=== PATIENT | male | born 1970 | race American Indian/Alaskan Native ===

== ENCOUNTER 2018-12-02 15:31 | Observation (INO) | payer SELFPAY ==
[2018-12-02 15:32] VITALS: BMI 25.7
[2018-12-02] MEDS ORDERED: Sodium Chloride 0.9% 1,000 ML IV SCH (15:45)
--- NOTE | 2018-12-02 15:52 | EDPD ---
HPI Stroke - General Time Seen by Provider: 12/02/18 15:41 Chief Complaint: Weakness/Neurological Deficit Historian: Patient, Spouse () - History of Present Illness Narrative History of Present Illness (Free Text): 12/02/18 15:49 A 48 year old male, whose past medical history includes PE no longer on coumadin, presents to the emergency department complaining of a possible stroke. Patient reports experiencing right sided facial numbness, arm numbness, right hand weakness that completely resolved prior to arrival. Patient denies any facial droop, speech changes, or any other complaints. PMD: Dr. Sosa Onset:: Hours (30-60 minutes) Timing: Currently Symptomatic (almost completely resolved) Context: Home Associated Symptoms: Numbness (right sided facial and arm numbness), other (right hand weakness) rTPA Inclusion/Exclusion - Refusal of Treatment Patient Refused Treatment: No - Inclusion Criteria for Altepase Patient is 18 years or Older: Yes The Clinical Diagnosis of Ischemic Stroke That is Causing a Potentially Disabling Neurological Deficit: Yes Time of Onset is Well Established to be Less Than 270 Minute Before Treatment Would Begin: Yes Risk/Benefit Discussed With Patient/Family Member Present: No - Warning to TPA With Conditions Condition: Stroke Serevity Too Mild, Rapid Improvement Past Medical History - Provider Review Nursing Documentation Reviewed: Yes - Infectious Disease Hx of Infectious Diseases: None - Tetanus Immunization Tetanus Immunization: Unknown - Cardiac Hx Cardiac Disorders: No - Pulmonary Hx Respiratory Disorders: Yes Hx Pulmonary Embolism: Yes Other/Comment: Sarcoidosis - Neurological Hx Neurological Disorder: Yes Hx Dizziness: Yes - HEENT Hx HEENT Disorder: No - Renal Hx Renal Disorder: No - Endocrine/Metabolic Hx Endocrine Disorders: No - Hematological/Oncological Hx Blood Disorders: No - Integumentary Hx Dermatological Disorder: No - Musculoskeletal/Rheumatological Hx Musculoskeletal Disorders: Yes Hx Falls: Yes Hx Fractures: Yes - Gastrointestinal Hx Gastrointestinal Disorders: No - Genitourinary/Gynecological Hx Genitourinary Disorders: No - Psychiatric Hx Psychophysiologic Disorder: Yes Hx Depression: Yes Hx Substance Use: No - Past Surgical History Past Surgical History: No Previous - Anesthesia Hx Anesthesia: Yes Hx Anesthesia Reactions: No Hx Malignant Hyperthermia: No - Suicidal Assessment Feels Threatened In Home Enviroment: No Allergies/Home Meds Allergies/Adverse Reactions: Allergies No Known Allergies Allergy (Verified 12/02/18 15:36) Home Medications: Home Meds Medication Instructions Recorded Confirmed No Known Home Med 12/02/18 12/02/18 Review of Systems - Physician Review All systems were reviewed & negative as marked: Yes - Review of Systems Skin: Other (right sided facial and arm numbness) Neurological: absent: Speech Changes, Facial Droop ED Stroke Physical Exam Vital Signs Reviewed: Yes Vital Signs Temp Pulse Resp BP Pulse Ox 12/02/18 15:37 97.7 F 85 17 123/86 100 Temperature: Afebrile Blood Pressure: Normal Pulse: Regular Respiratory Rate: Normal Mental Status: Positive for: Alert and Oriented X 3 - Systems Exam Head: Present: Atraumatic, Normocephalic Pupils: Present: PERRL Extroacular Muscles: Present: EOMI Conjunctiva: Present: Normal Mouth: Present: Moist Mucous Membranes Pharnyx: Present: Normal Respiratory/Chest: Present: Clear to Auscultation, Good Air Exchange. No: Respiratory Distress, Accessory Muscle Use Cardiovascular: Present: Regular Rate and Rhythm, Normal S1, S2. No: Murmurs Abdomen: Present: Normal Bowel Sounds. No: Tenderness, Distention, Peritoneal Signs Back: Present: GCS, CN, SP Upper Extremity: Present: Normal Inspection. No: Cyanosis, Edema Lower Extremity: Present: Normal Inspection. No: Edema Neurologic: Present: GCS=15, CN II-XII Intact, Speech Normal, Motor Func Grossly Intact, Normal Sensory Function, Normal Cerebellar Funct, Norm Deep Tendon Reflexes, Memory Normal, Normal 2Pt Descrimination. No: Pronator Drift, Facial Droop, Dysmetric Finger to Nose, Dysmetric Heel to Chin Skin: Present: Warm, Dry, Normal Color. No: Rashes Lymphatic: Present: OX3, NI, NC Psychiatric: Present: Alert, Oriented x 3, Normal Insight, Normal Concentration Medical Decision Making ED Course and Treatment: 12/02/18 15:54 Impression: 48 year old male presenting to the emergency room complaining of possible stroke. Differential Diagnosis included but are not limited to: TIA Plan: -- Type and screen -- Head CT without contrast -- Labs -- Stroke team consult -- CBC -- COAGs -- Chest X-ray -- IV fluids -- Reassess and disposition Prior Visits: Notes and results from previous visits were reviewed. Progress Notes: 12/02/18 15:38 CODE STROKE called. 12/02/18 16:10 Per Radiologist, CT results are negative. 12/02/18 16:37 EKG: Ordered, reviewed, and independently interpreted the EKG. Rate : 73 BPM Rhythm : NSR Interpretation : No ST-segment elevations or depressions, no T-wave inversions, normal intervals. 12/02/18 16:40 Procedure: Head CT without contrast Dictator: Compa Bassett MD Impression: No acute intracranial hemorrhage. Mucoperiosteal inflammatory changes are seen in the right maxillary sinus ethmoid and frontal sinuses as detailed above. Findings discussed with Dr. Christianson at approximately 3:56 p.m. with written down and read back verification 12/02/18 17:18 Case was discussed with Dr. Clifford who recommends admission for TIA and to get an MRI/MRA on admission. Patient is not a TPA candidate due to completely resolved symptoms. ABCD Score of 2. Case discussed with Dr. Green, hospitalist, who will place the patient on telemetry observation. Aspirin was given. Blood pressure controlled. - Critical Care Critical Care Minutes: 30 minutes - RAD Interpretation Radiology Orders: 12/02/18 15:41 HEAD W/O (CODE STROKE) [CT] Stat CHEST PORTABLE [RAD] Stat - Medication Orders Current Medication Orders: Sodium Chloride (Sodium Chloride 0.9%) 1,000 mls @ 100 mls/hr IV .Q10H TARA - Scribe Statement The provider has reviewed the documentation as recorded by the Scribe Samara Schroeder All medical record entries made by the Scribe were at my direction and personally dictated by me. I have reviewed the chart and agree that the record accurately reflects my personal performance of the history, physical exam, medical decision making, and the department course for this patient. I have also personally directed, reviewed, and agree with the discharge instructions and disposition. NIHSS Scale ([place]) Time Performed: 15:41 - How Severe is the Stoke Baseline Level of Consciousness: 0=Alert LOC to Questions: 0=Both comments correct LOC to commands: 0=Obeys both correctly Best Gaze: 0=Normal Visual: 0=No visual loss Facial: 0=Normal Motor Arm - Left: 0=No drift Motor Arm - Right: 0=No drift Motor Leg - Left: 0=No drift Motor Leg - Right: 0=No drift Limb Ataxia: 0=Absent Sensory: 0=Normal Best Language: 0=No aphasia Dysarthia: 0=Normal articulation Extinction & Inattention (Neglect): 0=Normal, no object Score: 0 Risk Level: No Stroke Risk Disposition/Present on Arrival - Present on Arrival Any Indicators Present on Arrival: Yes History of DVT/PE: Yes History of Uncontrolled Diabetes: No Urinary Catheter: No History of Decub. Ulcer: No History Surgical Site Infection Following: None - Disposition Have Diagnosis and Disposition been Completed?: Yes Diagnosis: TIA (transient ischemic attack) Disposition: HOSPITALIZED Disposition Time: 17:19 Patient Plan: Observation Patient Problems: Current Active Problems Problem Status Onset TIA (transient ischemic attack) Acute Condition: FAIR Referrals: Compa Sosa MD [Primary Care Provider] - Follow up with primary Forms: [employer] ([place])
--- NOTE | 2018-12-02 16:04 | CT ---
Date of service: 12/02/2018 PROCEDURE: CT HEAD WITHOUT CONTRAST. HISTORY: Code Stroke COMPARISON: Prior study available for comparison. TECHNIQUE: Axial computed tomography images were obtained through the head/brain without intravenous contrast. Radiation dose: Total exam DLP = 930.09 mGy-cm. This CT exam was performed using one or more of the following dose reduction techniques: Automated exposure control, adjustment of the mA and/or kV according to patient size, and/or use of iterative reconstruction technique. FINDINGS: HEMORRHAGE: No acute parenchymal, subarachnoid or extra-axial hemorrhage. BRAIN: No evidence of large acute infarct. Note that possibility of a small hyperacute infarct cannot be excluded on this study. Clinical correlation recommended. No obvious parenchymal nor extra-axial masses or collections. Ventricular and sulcal size within range of normal for this patient's stated age. VENTRICLES: No obstructive the hydrocephalus. CALVARIUM: No acute calvarial fractures. PARANASAL SINUSES: There is subtotal opacification right maxillary antrum with mild sclerosis and thickening of the posterolateral wall. On mild mucosal thickening also seen within several anterior superior right-sided ethmoid air cells extending into the frontal sinus which is also subtotally opacified. MASTOID AIR CELLS: Unremarkable as visualized. No inflammatory changes. OTHER FINDINGS: None. IMPRESSION: No acute intracranial hemorrhage. Mucoperiosteal inflammatory changes are seen in the right maxillary sinus ethmoid and frontal sinuses as detailed above. Findings discussed with Dr. Christianson at approximately 4:56 p.m. with written down and read back verification
[2018-12-02 16:08] LABS: BASO # 0.02 K/mm3 (0.0-2.0); BASO % 0.3 % (0.0-3.0); EOS # 0.2 (0.0-0.7); EOS % 2.5 % (1.5-5.0); HEMOGLOBIN 14.8 g/dL (14.0-18.0); LYMPH # 2.8 (1.2-3.4); LYMPH % 40.9 % (22.0-35.0); MEAN CELL VOLUME 87.6 fl (80.0-105.0); MEAN CORPUSCULAR HEMOGLOBIN 29.5 pg (25.0-35.0); MEAN CORPUSCULAR HGB CONC 33.6 g/dl (31.0-37.0); MEAN PLATELET VOLUME 9.5 fl (7.0-11.0); MONO # 0.4 (0.1-0.6); RBC 5.02 10^6/uL (3.5-6.1); RED CELL DISTRIBUTION WIDTH 13.2 % (11.5-14.5); WHITE BLOOD COUNT 6.8 10^3/uL (4.5-11.0)
[2018-12-02 16:20] LABS: ALB/GLOB RATIO 1.3 (1.1-1.8); ALBUMIN 4.3 g/dL (3.0-4.8); ALT/SGPT 13 U/L (7-56); AST/SGOT 23 U/L (17-59); BLOOD UREA NITROGEN 14 mg/dL (7-21); CALCIUM 9.4 mg/dL (8.4-10.5); GFR NON-AFRICAN AMERICAN > 60; HDL CHOLESTEROL 45 mg/dL (29-60); INR 1.14; PARTIAL THROMBOPLASTIN TIME 34.8 Seconds (26.9-38.3); PROTHROMBIN TIME 12.6 SECONDS (9.4-12.5)
[2018-12-02 16:31] LABS: LDL CHOLESTEROL 95 mg/dL (0-129)
[2018-12-02 16:34] LABS: TROPONIN I < 0.01 ng/mL
--- NOTE | 2018-12-02 16:58 | RAD ---
Date of service: 12/02/2018 HISTORY: Code Stroke COMPARISON: Comparison chest 08/30/2016. FINDINGS: LUNGS: Lung carver are hyperinflated with slight flattened appearing diaphragms suggesting underlying chronic manifestations of COPD. In addition, there are coarsened increased interstitial markings in the right upper lung field; findings may represent interstitial fibrosis. Clinical correlation recommended. There are some mild on scarring changes both lung bases as well as some a blunting both CP angles suggesting chronic pleural thickening. PLEURA: No significant pleural effusion identified, no pneumothorax apparent. CARDIOVASCULAR: No aortic atherosclerotic calcification present. Normal cardiac size. No pulmonary vascular congestion. OSSEOUS STRUCTURES: No significant abnormalities. VISUALIZED UPPER ABDOMEN: Normal. OTHER FINDINGS: None. IMPRESSION: Lung carver are hyperinflated with slight flattened appearing diaphragms suggesting underlying chronic manifestations of COPD. In addition, there are coarsened increased interstitial markings in the right upper lung field; findings may represent interstitial fibrosis. Clinical correlation recommended. There are some mild on scarring changes both lung bases as well as some a blunting both CP angles suggesting chronic pleural thickening.
--- NOTE | 2018-12-02 17:32 | CP.PCM.HP ---
<Inderjit Redd - Last Filed: 12/02/18 22:49> History of Present Illness - History of Present Illness History of Present Illness: Inderjit Redd, PGY1 Medicine H&P for Dr. Green cc: "right sided facial/arm numbness" Patient is a 48 year old male with PMHx sarcoidosis and PE (provoked 2/2 leg fracture, previously on coumadin) presented to the ED for right sided facial and arm numbness. Patient had associated right hand weakness prior to his arrival. In the ED, Vitals: Temp 97.7, HR 85, BP 123/86, RR 17, SaO2 100% (room air). Head CT showed no acute ICH. Code stroke was called at the time. Medical team evaluated patient in the ED. Patient said the incident happened at 2 pm and his symptoms occurred for a few minutes and resolved. He says that the right sided facial/arm numbness occurs almost everyday however it was particularly worse today. He denied any facial drooping, slurring of speech, bowel/bladder incontinence, tongue biting, or seizure-like activity. Patient was smoking marijuana at the time and regularly smokes it. He says he is also anxious. Denies chest pain, shortness of breath, nausea, vomiting, diarrhea, fever, chills, headache. A full 12 point ROS was conducted and unremarkable except as stated above. PMD: Dr. Sosa PMHx: sarcoidosis and PE (provoked 2/2 leg fracture, previously on coumadin) PSHx: denies Meds: see DEC. Allergies: NKDA SocialHx: smokes 1 PPD x10 years, no EtOH use. Marijuana use regularly. FHx: grandfather has hx of seizure and stroke. Present on Admission - Present on Admission Any Indicators Present on Admission: No Review of Systems - Review of Systems All systems: reviewed and no additional remarkable complaints except (as per HPI) Past Patient History - Infectious Disease Hx of Infectious Diseases: None - Tetanus Immunizations Tetanus Immunization: Unknown - Past Social History Smoking Status: Former Smoker - CARDIAC Hx Cardiac Disorders: No - PULMONARY Hx Respiratory Disorders: Yes Hx Pulmonary Embolism: Yes Other/Comment: Sarcoidosis - NEUROLOGICAL Hx Neurological Disorder: Yes Hx Dizziness: Yes - HEENT Hx HEENT Problems: No - RENAL Hx Chronic Kidney Disease: No - ENDOCRINE/METABOLIC Hx Endocrine Disorders: No - HEMATOLOGICAL/ONCOLOGICAL Hx Blood Disorders: No - INTEGUMENTARY Hx Dermatological Problems: No - MUSCULOSKELETAL/RHEUMATOLOGICAL Hx Musculoskeletal Disorders: Yes Hx Falls: Yes Hx Fractures: Yes - GASTROINTESTINAL Hx Gastrointestinal Disorders: No - GENITOURINARY/GYNECOLOGICAL Hx Genitourinary Disorders: No - PSYCHIATRIC Hx Psychophysiologic Disorder: Yes Hx Depression: Yes Hx Substance Use: No - SURGICAL HISTORY Hx Surgeries: No - ANESTHESIA Hx Anesthesia: Yes Hx Anesthesia Reactions: No Hx Malignant Hyperthermia: No Meds Allergies/Adverse Reactions: Allergies Allergy/AdvReac Type Severity Reaction Status Date / Time No Known Allergies Allergy Verified 12/02/18 15:36 Physical Exam - Constitutional Appears: No Acute Distress - Head Exam Head Exam: ATRAUMATIC, NORMAL INSPECTION, NORMOCEPHALIC Additional comments: No facial droop. - Eye Exam Eye Exam: EOMI, Normal appearance, PERRL Pupil Exam: NORMAL ACCOMODATION - ENT Exam ENT Exam: Mucous Membranes Moist, Normal Oropharynx - Neck Exam Neck exam: Positive for: Normal Inspection - Respiratory Exam Respiratory Exam: Clear to Auscultation Bilateral, NORMAL BREATHING PATTERN. absent: Rales, Rhonchi, Wheezes - Cardiovascular Exam Cardiovascular Exam: RRR, +S1, +S2 - GI/Abdominal Exam GI & Abdominal Exam: Normal Bowel Sounds, Soft. absent: Tenderness - Extremities Exam Extremities exam: Positive for: full ROM, normal capillary refill, normal inspection, pedal pulses present. Negative for: calf tenderness, tenderness Additional comments: 5/5 motor strength in all extremities. Sensation intact in all extremities. - Back Exam Back exam: NORMAL INSPECTION - Neurological Exam Neurological exam: Alert, CN II-XII Intact, Normal Gait, Oriented x3, Reflexes Normal - Psychiatric Exam Psychiatric exam: Normal Affect, Normal Mood - Skin Skin Exam: Dry, Intact, Normal Color, Warm Results - Vital Signs Recent Vital Signs: Last Vital Signs Temp 97.7 F 12/02/18 15:37 Pulse 85 12/02/18 15:37 Resp 17 12/02/18 15:37 BP 123/86 12/02/18 15:37 Pulse Ox 100 12/02/18 15:37 - Labs Result Diagrams: 12/02/18 16:04 12/02/18 16:04 Labs: Laboratory Results - last 24 hr 12/02/18 12/02/18 12/02/18 15:40 16:04 16:04 WBC 6.8 RBC 5.02 Hgb 14.8 Hct 44.0 MCV 87.6 MCH 29.5 MCHC 33.6 RDW 13.2 Plt Count 229 MPV 9.5 Neut % (Auto) 50.3 Lymph % (Auto) 40.9 H Hill % (Auto) 6.0 Eos % (Auto) 2.5 Baso % (Auto) 0.3 Lymph # (Auto) 2.8 Hill # (Auto) 0.4 Eos # (Auto) 0.2 Baso # (Auto) 0.02 Absolute Neuts (auto) 3.44 PT 12.6 H INR 1.14 APTT 34.8 Sodium Potassium Chloride Carbon Dioxide Anion Gap BUN Creatinine Est GFR ( Amer) Est GFR (Non-Af Amer) POC Glucose (mg/dL) 128 H Random Glucose Calcium Total Bilirubin AST ALT Alkaline Phosphatase Troponin I Total Protein Albumin Globulin Albumin/Globulin Ratio Triglycerides Cholesterol LDL Cholesterol Direct HDL Cholesterol Blood Type Antibody Screen BBK History Checked 12/02/18 12/02/18 16:04 16:04 WBC RBC Hgb Hct MCV MCH MCHC RDW Plt Count MPV Neut % (Auto) Lymph % (Auto) Hill % (Auto) Eos % (Auto) Baso % (Auto) Lymph # (Auto) Hill # (Auto) Eos # (Auto) Baso # (Auto) Absolute Neuts (auto) PT INR APTT Sodium 141 Potassium 4.2 Chloride 107 Carbon Dioxide 26 Anion Gap 12 BUN 14 Creatinine 1.1 Est GFR ( Amer) > 60 Est GFR (Non-Af Amer) > 60 POC Glucose (mg/dL) Random Glucose 111 H Calcium 9.4 Total Bilirubin 0.4 AST 23 ALT 13 Alkaline Phosphatase 99 Troponin I < 0.01 Total Protein 7.7 Albumin 4.3 Globulin 3.4 Albumin/Globulin Ratio 1.3 Triglycerides 61 Cholesterol 152 LDL Cholesterol Direct 95 HDL Cholesterol 45 Blood Type B POSITIVE Antibody Screen Negative BBK History Checked No verified bt Assessment & Plan - Assessment and Plan (Free Text) Assessment: Patient is a 48 year old male with PMHx sarcoidosis and PE (provoked 2/2 leg fracture, previously on coumadin) presented to the ED for right sided facial and arm numbness. Patient will be admitted to observation for TIA. Plan: Right Face and Arm Numbness 2/2 TIA - c/w ASA 81 mg PO daily - c/w Lipitor 40mg PO qHS - Neuro (Dr. Clifford) on consult - MRI and MRA ordered - Echo w/ bubble study to r/o PFO - Patient passed nursing speech/swallow; can tolerate PO - HHD - monitor as obs to remote tele - trop negative x1 - PT - neurochecks - frequent vital checks - f/u daily labs - CT Head: no acute ICH. Mucoperiosteal inflammatory changes seen in the R- maxillary sinus ethmoid and frontal sinus. Marijuana Abuse - counseled on cessation - UDS Possible Undiagnosed Asthma vs COPD - CXR: hyperinflated lungs with diaphragm flattening. No consolidation or infiltrate. - duonebs prn - Asymptomatic at this time - Hx Sarcoidosis Hx PE (provoked 2/2 leg fracture) - previously on coumadin, no longer taking it DVT ppx: scd GI ppx: ptx Diet: HHD Dispo: observe patient on remote tele. Case was discussed and reviewed with Attending Physician, Dr. Green <Jake Green - Last Filed: 12/03/18 07:37> Results - Vital Signs Recent Vital Signs: Last Vital Signs Temp 97.6 F 12/02/18 22:45 Pulse 52 L 12/02/18 23:38 Resp 20 12/02/18 23:38 BP 116/71 12/02/18 22:45 Pulse Ox 98 12/02/18 22:45 - Labs Result Diagrams: 12/03/18 06:00 12/03/18 06:00 Labs: Laboratory Results - last 24 hr 12/02/18 12/02/18 12/02/18 15:40 16:04 16:04 WBC 6.8 RBC 5.02 Hgb 14.8 Hct 44.0 MCV 87.6 MCH 29.5 MCHC 33.6 RDW 13.2 Plt Count 229 MPV 9.5 Neut % (Auto) 50.3 Lymph % (Auto) 40.9 H Hill % (Auto) 6.0 Eos % (Auto) 2.5 Baso % (Auto) 0.3 Lymph # (Auto) 2.8 Hill # (Auto) 0.4 Eos # (Auto) 0.2 Baso # (Auto) 0.02 Absolute Neuts (auto) 3.44 PT 12.6 H INR 1.14 APTT 34.8 Sodium Potassium Chloride Carbon Dioxide Anion Gap BUN Creatinine Est GFR ( Amer) Est GFR (Non-Af Amer) POC Glucose (mg/dL) 128 H Random Glucose Calcium Phosphorus Magnesium Total Bilirubin AST ALT Alkaline Phosphatase Troponin I Total Protein Albumin Globulin Albumin/Globulin Ratio Triglycerides Cholesterol LDL Cholesterol Direct HDL Cholesterol Blood Type Blood Type Confirm Antibody Screen BBK History Checked 12/02/18 12/02/18 12/02/18 16:04 16:04 21:02 WBC RBC Hgb Hct MCV MCH MCHC RDW Plt Count MPV Neut % (Auto) Lymph % (Auto) Hill % (Auto) Eos % (Auto) Baso % (Auto) Lymph # (Auto) Hill # (Auto) Eos # (Auto) Baso # (Auto) Absolute Neuts (auto) PT INR APTT Sodium 141 Potassium 4.2 Chloride 107 Carbon Dioxide 26 Anion Gap 12 BUN 14 Creatinine 1.1 Est GFR ( Amer) > 60 Est GFR (Non-Af Amer) > 60 POC Glucose (mg/dL) Random Glucose 111 H Calcium 9.4 Phosphorus Magnesium Total Bilirubin 0.4 AST 23 ALT 13 Alkaline Phosphatase 99 Troponin I < 0.01 Total Protein 7.7 Albumin 4.3 Globulin 3.4 Albumin/Globulin Ratio 1.3 Triglycerides 61 Cholesterol 152 LDL Cholesterol Direct 95 HDL Cholesterol 45 Blood Type B POSITIVE Blood Type Confirm B POSITIVE Antibody Screen Negative BBK History Checked No verified bt 12/02/18 12/03/18 12/03/18 21:54 01:00 06:00 WBC 5.5 RBC 4.42 Hgb 12.7 L D Hct 38.6 L MCV 87.3 MCH 28.7 MCHC 32.9 RDW 13.2 Plt Count 229 MPV 9.7 Neut % (Auto) Lymph % (Auto) Hill % (Auto) Eos % (Auto) Baso % (Auto) Lymph # (Auto) Hill # (Auto) Eos # (Auto) Baso # (Auto) Absolute Neuts (auto) PT INR APTT Sodium Potassium Chloride Carbon Dioxide Anion Gap BUN Creatinine Est GFR ( Amer) Est GFR (Non-Af Amer) POC Glucose (mg/dL) 117 H Random Glucose Calcium Phosphorus Magnesium Total Bilirubin AST ALT Alkaline Phosphatase Troponin I < 0.01 Total Protein Albumin Globulin Albumin/Globulin Ratio Triglycerides Cholesterol LDL Cholesterol Direct HDL Cholesterol Blood Type Blood Type Confirm Antibody Screen BBK History Checked 12/03/18 06:00 WBC RBC Hgb Hct MCV MCH MCHC RDW Plt Count MPV Neut % (Auto) Lymph % (Auto) Hill % (Auto) Eos % (Auto) Baso % (Auto) Lymph # (Auto) Hill # (Auto) Eos # (Auto) Baso # (Auto) Absolute Neuts (auto) PT INR APTT Sodium 139 Potassium 4.6 Chloride 112 H Carbon Dioxide 22 Anion Gap 9 L BUN 14 Creatinine 0.9 Est GFR ( Amer) > 60 Est GFR (Non-Af Amer) > 60 POC Glucose (mg/dL) Random Glucose 72 Calcium 8.2 L Phosphorus 3.3 Magnesium 1.7 Total Bilirubin 0.5 AST 29 ALT 17 Alkaline Phosphatase 78 Troponin I < 0.01 Total Protein 6.6 Albumin 3.4 Globulin 3.2 Albumin/Globulin Ratio 1.0 L Triglycerides Cholesterol LDL Cholesterol Direct HDL Cholesterol Blood Type Blood Type Confirm Antibody Screen BBK History Checked Attending/Attestation - Attestation I have personally seen and examined this patient.: Yes I have fully participated in the care of the patient.: Yes I have reviewed all pertinent clinical information: Yes Notes (Text): 12/02/18 48 year old male with past medical history of sarcoidosis and PE who presents with complaint of rights sided facial and arm numbness, now resolved. CT head showed mucoperiosteal inflammatory changes in right maxillary ethmoid and frontal sinus but no acute intracranial hemorrhage. MRI, MRA and echocardiogram studies are ordered. Neurology and PT evaluations are requested. Continue with aspirin and statin. CXR noted showing hyperinflated lungs with diaphragm flattening. Pt is asymptomatic without wheezing or dyspnea. Continue with duonebs prn. Admits to marijuana use. He was counselled on cessation. Utox is pending. Jake Green MD Hospitalist.
[2018-12-02] MEDS ORDERED: Albuterol-Ipratrop 3 mg / 0.5 (3 ml) UD IH PRN (18:10)
[2018-12-02 18:32] VITALS: O2SAT 98
[2018-12-02 23:17] VITALS: BP 116/71; RESP 20; TEMP 97.6
[2018-12-03] MEDS ORDERED: Pantoprazole 40 mg EC Tab PO SCH (06:00)
[2018-12-03 06:31] LABS: ALBUMIN 3.4 g/dL (3.0-4.8); ALT/SGPT 17 U/L (7-56); AST/SGOT 29 U/L (17-59); BLOOD UREA NITROGEN 14 mg/dL (7-21); CALCIUM 8.2 mg/dL (8.4-10.5); GFR NON-AFRICAN AMERICAN > 60
[2018-12-03 06:39] LABS: TROPONIN I < 0.01 ng/mL
[2018-12-03 07:01] LABS: HEMOGLOBIN 12.7 g/dL (14.0-18.0); MEAN CELL VOLUME 87.3 fl (80.0-105.0); MEAN CORPUSCULAR HEMOGLOBIN 28.7 pg (25.0-35.0); MEAN CORPUSCULAR HGB CONC 32.9 g/dl (31.0-37.0); MEAN PLATELET VOLUME 9.7 fl (7.0-11.0); RBC 4.42 10^6/uL (3.5-6.1); RED CELL DISTRIBUTION WIDTH 13.2 % (11.5-14.5); WHITE BLOOD COUNT 5.5 10^3/uL (4.5-11.0)
--- NOTE | 2018-12-03 07:19 | CP.PCM.PN ---
Subjective - Date & Time of Evaluation Date of Evaluation: 12/03/18 Objective - Vital Signs/Intake and Output Vital Signs (last 24 hours): Temp Pulse Resp BP Pulse Ox 97.6 F 52 L 20 116/71 98 12/02/18 22:45 12/02/18 23:38 12/02/18 23:38 12/02/18 22:45 12/02/18 22:45 Intake and Output: 12/03/18 12/03/18 06:59 18:59 Intake Total 0 Output Total 300 Balance -300 - Medications Medications: Current Medications Albuterol/Ipratropium (Duoneb 3 Mg/0.5 Mg (3 Ml) Ud) 3 ml IH Q4H PRN PRN Reason: Shortness of Breath Aspirin (Ecotrin) 81 mg PO DAILY [facility] Atorvastatin Calcium (Lipitor) 40 mg PO DIN [facility] Last Admin: 12/02/18 21:24 Dose: 40 mg Sodium Chloride (Sodium Chloride 0.9%) 1,000 mls @ 100 mls/hr IV .Q10H [facility] Last Admin: 12/02/18 20:14 Dose: 100 mls/hr Pantoprazole Sodium (Protonix Ec Tab) 40 mg PO 0600 [facility] Last Admin: 12/03/18 07:01 Dose: 40 mg - Labs Labs: 12/03/18 06:00 12/03/18 06:00 PT 12.6 SECONDS (9.4-12.5) H 12/02/18 16:04 INR 1.14 12/02/18 16:04 APTT 34.8 Seconds (26.9-38.3) 12/02/18 16:04
--- NOTE | 2018-12-03 08:50 | CARD ---
APPROVED REPORT Date of service: 12/02/2018 EKG Measurement Heart [id number] <Conclusion> Normal sinus rhythm Early repolarization Normal ECG
--- NOTE | 2018-12-03 11:14 | CP.PCM.DIS ---
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 12/02/18 18:01 Physician Consult Routine Comment: Consulting Provider: Eliel Clifford Consulting Physician: Eliel Clifford Reason for Consult: TIA vs stroke Time Spent in preparation of Discharge (in minutes): 45 Diagnosis - Discharge Diagnosis (1) TIA (transient ischemic attack) Status: Acute Priority: High (2) History of pulmonary embolism Status: Chronic Priority: Medium (3) Sarcoidosis Status: Chronic Priority: Medium (4) Illicit drug use Status: Chronic Priority: High Hospital Course - Lab Results Lab Results: Most Recent Lab Values WBC 5.5 10^3/uL (4.5-11.0) 12/03/18 06:00 RBC 4.42 10^6/uL (3.5-6.1) 12/03/18 06:00 Hgb 12.7 g/dL (14.0-18.0) L D 12/03/18 06:00 Hct 38.6 % (42.0-52.0) L 12/03/18 06:00 MCV 87.3 fl (80.0-105.0) 12/03/18 06:00 MCH 28.7 pg (25.0-35.0) 12/03/18 06:00 MCHC 32.9 g/dl (31.0-37.0) 12/03/18 06:00 RDW 13.2 % (11.5-14.5) 12/03/18 06:00 Plt Count 229 10^3/uL (120.0-450.0) 12/03/18 06:00 MPV 9.7 fl (7.0-11.0) 12/03/18 06:00 Neut % (Auto) 50.3 % (50.0-68.0) 12/02/18 16:04 Lymph % (Auto) 40.9 % (22.0-35.0) H 12/02/18 16:04 Rogers % (Auto) 6.0 % (1.0-6.0) 12/02/18 16:04 Eos % (Auto) 2.5 % (1.5-5.0) 12/02/18 16:04 Baso % (Auto) 0.3 % (0.0-3.0) 12/02/18 16:04 Lymph # (Auto) 2.8 (1.2-3.4) 12/02/18 16:04 Rogers # (Auto) 0.4 (0.1-0.6) 12/02/18 16:04 Eos # (Auto) 0.2 (0.0-0.7) 12/02/18 16:04 Baso # (Auto) 0.02 K/mm3 (0.0-2.0) 12/02/18 16:04 Absolute Neuts (auto) 3.44 (1.4-6.5) 12/02/18 16:04 PT 12.6 SECONDS (9.4-12.5) H 12/02/18 16:04 INR 1.14 12/02/18 16:04 APTT 34.8 Seconds (26.9-38.3) 12/02/18 16:04 Sodium 139 mmol/L (132-148) 12/03/18 06:00 Potassium 4.6 mmol/L (3.6-5.0) 12/03/18 06:00 Chloride 112 mmol/L (98-107) H 12/03/18 06:00 Carbon Dioxide 22 mmol/L (21-33) 12/03/18 06:00 Anion Gap 9 (10-20) L 12/03/18 06:00 BUN 14 mg/dL (7-21) 12/03/18 06:00 Creatinine 0.9 mg/dl (0.8-1.5) 12/03/18 06:00 Est GFR ( Amer) > 60 12/03/18 06:00 Est GFR (Non-Af Amer) > 60 12/03/18 06:00 POC Glucose (mg/dL) 117 mg/dL (65-110) H 12/02/18 21:54 Random Glucose 72 mg/dL (70-110) 12/03/18 06:00 Calcium 8.2 mg/dL (8.4-10.5) L 12/03/18 06:00 Phosphorus 3.3 mg/dL (2.5-4.5) 12/03/18 06:00 Magnesium 1.7 mg/dL (1.7-2.2) 12/03/18 06:00 Total Bilirubin 0.5 mg/dL (0.2-1.3) 12/03/18 06:00 AST 29 U/L (17-59) 12/03/18 06:00 ALT 17 U/L (7-56) 12/03/18 06:00 Alkaline Phosphatase 78 U/L (38-126) 12/03/18 06:00 Troponin I < 0.01 ng/mL 12/03/18 06:00 Total Protein 6.6 g/dL (5.8-8.3) 12/03/18 06:00 Albumin 3.4 g/dL (3.0-4.8) 12/03/18 06:00 Globulin 3.2 gm/dL 12/03/18 06:00 Albumin/Globulin Ratio 1.0 (1.1-1.8) L 12/03/18 06:00 Triglycerides 61 mg/dL (35-160) 12/02/18 16:04 Cholesterol 152 mg/dL (130-200) 12/02/18 16:04 LDL Cholesterol Direct 95 mg/dL (0-129) 12/02/18 16:04 HDL Cholesterol 45 mg/dL (29-60) 12/02/18 16:04 Blood Type B POSITIVE 12/02/18 16:04 Blood Type Confirm B POSITIVE 12/02/18 21:02 Antibody Screen Negative 12/02/18 16:04 BBK History Checked No verified bt 12/02/18 16:04 - Hospital Course Hospital Course: Patient is a 48 year old male with PMHx sarcoidosis and PE (provoked 2/2 leg fracture, previously on coumadin) who was admitted for evaluation and treatment of right sided facial and arm numbness. With the use of physical examinations, lab work, and imaging the patient was diagnosed with and treated for a TIA, along with the patients chronic medical conditions. During their hospital stay the patient underwent a head CT without contrast and CXR which were reviewed, appreciated, and utilized in the management of the patients clinical course. The noncontrast head CT showed no acute intracranial hemorrhage and mucoperiosteal inflammatory changes in the right maxillary sinus ethmoid and frontal sinuses. the chest xray revealed lung carver that were hyperinflated with slight flattened appearing diaphragms,coarsened increased interstitial markings in the right upper lung field, and mild scarring changes at both lung bases as well as some a blunting both CP angles. Patient was treated with aspirin, statin, PPI, duonebs, and IVF. Patient desired to leave against medical advice due to social issues. Patient was educated on the risks and benefits of leaving at this time without being medically cleared. Patient both understands and appreciates that leaving against medical advice can increase his risk of both morbidity and mortality. Furthermore, the patient is instructed to return to the emergency room for evaluation of new or worsening symptoms including but not limited to intractable headache, fever, chills, dizziness, chest pain, shortness of breath, abdominal pain, nausea, vomiting, diarrhea, constipation, and urinary symptoms. This is a brief summary of the patients hospital course. Please see patient chart for full details. Discharge Exam - Additional Findings Additional findings: - Constitutional Appears: No Acute Distress - Head Exam Head Exam: ATRAUMATIC, NORMAL INSPECTION, NORMOCEPHALIC Additional comments: No facial droop. - Eye Exam Eye Exam: EOMI, Normal appearance, PERRL Pupil Exam: NORMAL ACCOMODATION - ENT Exam ENT Exam: Mucous Membranes Moist, Normal Oropharynx - Neck Exam Neck exam: Positive for: Normal Inspection - Respiratory Exam Respiratory Exam: Clear to Auscultation Bilateral, NORMAL BREATHING PATTERN. absent: Rales, Rhonchi, Wheezes - Cardiovascular Exam Cardiovascular Exam: RRR, +S1, +S2 - GI/Abdominal Exam GI & Abdominal Exam: Normal Bowel Sounds, Soft. absent: Tenderness - Extremities Exam Extremities exam: Positive for: full ROM, normal capillary refill, normal inspection, pedal pulses present. Negative for: calf tenderness, tenderness Additional comments: - Neurological Exam Neurological exam: Patient is awake, alert, orientated x 3, responds to verbal stimuli, answers questions appropriately, follows commands, and moves extremities past midline, CN II-XII Intact, muscle strength 5/5 throughout, sensation intact to touch throughout - Psychiatric Exam Psychiatric exam: Normal Affect, Normal Mood - Skin Skin Exam: Dry, Intact, Normal Color, Warm Discharge Plan - Follow Up Plan Condition: FAIR Disposition: AGAINST MEDICAL ADVICE Additional Instructions: Patient left against medical advice Referrals: Compa Sosa MD [Primary Care Provider] - <Jake Green - Last Filed: 12/03/18 11:34> Provider - Provider Date of Admission: 12/02/18 17:29 Attending physician: Jake Green MD Primary care physician: Compa Soas MD Consults: 12/02/18 15:41 Stroke Team Consult Stat Comment: Consulting Provider: Neurohospitalist Consulting Physician: NEUROHOSP Neurohospitalist for Consult: Eliel Clifford Neurohospitalist for Consult: Estrellita Toney Reason for Consult: right facial/arm 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 12/02/18 18:01 Physician Consult Routine Comment: Consulting Provider: Eliel Clifford Consulting Physician: Eliel Clifford Reason for Consult: TIA vs stroke Hospital Course - Lab Results Lab Results: Most Recent Lab Values WBC 5.5 10^3/uL (4.5-11.0) 12/03/18 06:00 RBC 4.42 10^6/uL (3.5-6.1) 12/03/18 06:00 Hgb 12.7 g/dL (14.0-18.0) L D 12/03/18 06:00 Hct 38.6 % (42.0-52.0) L 12/03/18 06:00 MCV 87.3 fl (80.0-105.0) 12/03/18 06:00 MCH 28.7 pg (25.0-35.0) 12/03/18 06:00 MCHC 32.9 g/dl (31.0-37.0) 12/03/18 06:00 RDW 13.2 % (11.5-14.5) 12/03/18 06:00 Plt Count 229 10^3/uL (120.0-450.0) 12/03/18 06:00 MPV 9.7 fl (7.0-11.0) 12/03/18 06:00 Neut % (Auto) 50.3 % (50.0-68.0) 12/02/18 16:04 Lymph % (Auto) 40.9 % (22.0-35.0) H 12/02/18 16:04 Rogers % (Auto) 6.0 % (1.0-6.0) 12/02/18 16:04 Eos % (Auto) 2.5 % (1.5-5.0) 12/02/18 16:04 Baso % (Auto) 0.3 % (0.0-3.0) 12/02/18 16:04 Lymph # (Auto) 2.8 (1.2-3.4) 12/02/18 16:04 Rogers # (Auto) 0.4 (0.1-0.6) 12/02/18 16:04 Eos # (Auto) 0.2 (0.0-0.7) 12/02/18 16:04 Baso # (Auto) 0.02 K/mm3 (0.0-2.0) 12/02/18 16:04 Absolute Neuts (auto) 3.44 (1.4-6.5) 12/02/18 16:04 PT 12.6 SECONDS (9.4-12.5) H 12/02/18 16:04 INR 1.14 12/02/18 16:04 APTT 34.8 Seconds (26.9-38.3) 12/02/18 16:04 Sodium 139 mmol/L (132-148) 12/03/18 06:00 Potassium 4.6 mmol/L (3.6-5.0) 12/03/18 06:00 Chloride 112 mmol/L (98-107) H 12/03/18 06:00 Carbon Dioxide 22 mmol/L (21-33) 12/03/18 06:00 Anion Gap 9 (10-20) L 12/03/18 06:00 BUN 14 mg/dL (7-21) 12/03/18 06:00 Creatinine 0.9 mg/dl (0.8-1.5) 12/03/18 06:00 Est GFR ( Amer) > 60 12/03/18 06:00 Est GFR (Non-Af Amer) > 60 12/03/18 06:00 POC Glucose (mg/dL) 117 mg/dL (65-110) H 12/02/18 21:54 Random Glucose 72 mg/dL (70-110) 12/03/18 06:00 Calcium 8.2 mg/dL (8.4-10.5) L 12/03/18 06:00 Phosphorus 3.3 mg/dL (2.5-4.5) 12/03/18 06:00 Magnesium 1.7 mg/dL (1.7-2.2) 12/03/18 06:00 Total Bilirubin 0.5 mg/dL (0.2-1.3) 12/03/18 06:00 AST 29 U/L (17-59) 12/03/18 06:00 ALT 17 U/L (7-56) 12/03/18 06:00 Alkaline Phosphatase 78 U/L (38-126) 12/03/18 06:00 Troponin I < 0.01 ng/mL 12/03/18 06:00 Total Protein 6.6 g/dL (5.8-8.3) 12/03/18 06:00 Albumin 3.4 g/dL (3.0-4.8) 12/03/18 06:00 Globulin 3.2 gm/dL 12/03/18 06:00 Albumin/Globulin Ratio 1.0 (1.1-1.8) L 12/03/18 06:00 Triglycerides 61 mg/dL (35-160) 12/02/18 16:04 Cholesterol 152 mg/dL (130-200) 12/02/18 16:04 LDL Cholesterol Direct 95 mg/dL (0-129) 12/02/18 16:04 HDL Cholesterol 45 mg/dL (29-60) 12/02/18 16:04 Blood Type B POSITIVE 12/02/18 16:04 Blood Type Confirm B POSITIVE 12/02/18 21:02 Antibody Screen Negative 12/02/18 16:04 BBK History Checked No verified bt 12/02/18 16:04 Attending/Attestation - Attestation I have personally seen and examined this patient.: Yes I have fully participated in the care of the patient.: Yes I have reviewed all pertinent clinical information, including history, physical exam and plan: Yes Notes (Text): 12/03/18 11:33 Patient left against medical advise strike planning applications prior to AM rounds.
[2018-12-03 20:01] VITALS: PULSE 55
== END 2018-12-03 09:34 | disposition left against medical advice (07) ==
LOC: ED 15:31 → ERH 17:29 → 3RSO 12-03 00:01
PROVIDERS: ADMIT Internal Medicine; ATTEND Internal Medicine
DX: G45.9 Transient cerebral ischemic attack, unspecified (principal); D86.9 Sarcoidosis, unspecified; F12.90 Cannabis use, unspecified, uncomplicated; F17.210 Nicotine dependence, cigarettes, uncomplicated; Z86.711 Personal history of pulmonary embolism; Z82.3 Family history of stroke
CPT/HCPCS: 36415; 70450; 71045; 80053; 80061; 82948; 83036; 83735; 84100; 84484; 85025; 85027; 85610; 85730; 86850; 86900; 93005; 99285; G0378; J7030